=== PATIENT | female | born 1960 | race African-American/Black ===

== ENCOUNTER 2018-08-31 15:02 | Inpatient (IN) | payer MEDICAID ==
[~2018-08-31] VITALS: Ht 144.8 cm; Wt 65.3 kg
--- NOTE | 2018-08-31 15:07 | NUR ---
PT SENT TO LOBBY TO WAIT FOR AVAILABLE BED. NO DISTRESS AND ALERT AND ORIENTED
--- NOTE | 2018-08-31 15:53 | NUR ---
PT C/O OF EPIGASTRIC PAIN FOR ONE WEEK. PT STS THAT SHE HAS BEEN HAVING NAUSEA FOR ONE YEAR AND THAT SHE FEELS THAT SHE HAS BEEN GAINING A LOT OF WEIGHT. PT STS THAT WHEN SHE EATS AND DRINKS THAT SHE GETS HEARTBURN. PT IS ALSO IS HAVING "RIGHT SIDED HOT FLASHES IN HER ARM". PT IS HAVING FREQUENT URINATION FOR A FEW MONTHS OFF AND ON AND NOW CONSTANT FOR TWO WEEKS. UPOAN PALPATION OF ULQ/LLQ PT STS SHE HAS TENDERNESS. VSS. RESP E/U. WILL CONTINUE TO MONITOR.
--- NOTE | 2018-08-31 16:31 | NUR ---
MEDICATED ORDERED. ULTRASOUND AT BEDSIDE.
[2018-08-31 16:35] LABS: microscopic required? YES; urine erythrocyte NEGATIVE (NEGATIVE)
[2018-08-31 16:41] LABS: BASOPHIL % 0.5 % (0-2); PLATELET COUNT 262 x10^3mcL (130-400); RED CELL DISTRIBUTION WIDTH 12.9 % (11.5-14.5)
[2018-08-31 16:50] LABS: AMPHETAMINE QUAL UR NONE DETECTED (See below)
[2018-08-31 16:56] LABS: CALCIUM 8.9 mg/dL (8.5-10.1); CARBON DIOXIDE 32.3 mmol/L (21-32); CHLORIDE SERUM 109 mmol/L (98-107); CREATININE SERUM 0.8 mg/dL (0.6-1.0); GFR1 > 60 mL/min; GLUCOSE SERUM 89 mg/dL (74-106); POTASSIUM SERUM 3.8 mmol/L (3.5-5.1); SODIUM SERUM 144 mmol/L (136-145)
--- NOTE | 2018-08-31 17:01 | NUR ---
XRAY AT BEDSIDE.
[2018-08-31 17:09] LABS: ALBUMIN 3.5 g/dL (3.4-5.0); ALKALINE PHOSPHATASE 74 U/L (46-116); ALT/SGPT 18 U/L (14-59); AMYLASE 61 U/L (25-115); AST/SGOT 14 U/L (15-37); CHOLESTEROL 145 mg/dL (<200); HDL CHOLESTEROL 49 mg/dL (40-60); LIPASE 95 IU/L (73-393); T4(THYROXINE) 6.9 ug/dL (4.7-13.3); TOTAL PROTEIN, SERUM 7.2 g/dL (6.4-8.2)
--- NOTE | 2018-08-31 17:47 | NUR ---
PT IN POSITION OF COMFORT. NO DISTRESS NOTED. PT STS THAT SHE HAS NO PAIN IN ABDOMEN. VSS. WILL CONTINUE TO MONITOR.
--- NOTE | 2018-08-31 19:18 | NUR ---
REPORT RECEIVED FROM FRANCISCO LOGAN
--- NOTE | 2018-08-31 20:20 | NUR ---
PT STATES SHE IS HUNGRY, BUT WAS TOLD THAT SHE NEEDS TO REMAIN NPO PER MD ORDERS. PT IS AWARE WE ARE WAITING FOR A BED. PT HAD E/U CHEST RISE. ALL MONITORS IN PLACE. NO DISTRESS NOTED AT THIS TIME.
[2018-08-31 20:56] LABS: CHOLESTEROL/HDL RATIO 3.2; MAGNESIUM 2.1 mg/dL (1.8-2.4); PHOSPHOROUS 3.6 mg/dL (2.5-4.9)
--- NOTE | 2018-08-31 21:25 | NUR ---
RECEIVED PT FROM ED VIA [facility], CAME IN DUE TO EPIASTRIC PAIN AND LOWER MID CHEST PAIN. AAOX4. DENIES HEADACHE/DIZZINESS. NO SOB NOTED. STATED THAT SHE HAS 10/10 LOWER MID CHEST AND EPIGASTRIC PAIN DESCRIBED ACHING. C/O BLOATING, STATED THAT SHE HAS BEEN PASSING GAS, LAST BM YESTERDAY. ABDOMEN IS SOFT AND DISTENDED. BOWEL SOUNDS ACTIVE. IV SITE ON THE LAC IS PATENT AND INTACT. SIDE RAILS UPX2. CALL LIGHT ON REACH. ENDORSED TO PRIMARY NURSE SUKHDEV FOR CONTINUITY OF CARE
[2018-08-31 21:32] VITALS: BP 112/91
[2018-08-31 21:38] VITALS: Ht 144.8 cm; Wt 65.3 kg
--- NOTE | 2018-09-01 05:10 | NUR ---
PT AWAKE AND C/O OF LEFT SIDE CHEST PAIN, NORCO 1 TAB VIA ORAL ADMINISTERED, ON TELE#12 NSR, IVF INFUSING WELL, BREATHING EVEN AND UNLABORED ON ROOM AIR WITH NO RESP DISTRESS NOTED, GAVE NORCO X 1 LAST NIGHT WITH GOOD RELIEF, NO DISTRESS NOTED, WILL KEEP TO MONITOR.
[2018-09-01 05:23] VITALS: BP 114/69
[2018-09-01 06:21] LABS: BASOPHIL % 0.8 % (0-2); PLATELET COUNT 216 x10^3mcL (130-400); RED CELL DISTRIBUTION WIDTH 13.1 % (11.5-14.5)
[2018-09-01 06:24] LABS: CALCIUM 8.5 mg/dL (8.5-10.1); CARBON DIOXIDE 26.8 mmol/L (21-32); CHLORIDE SERUM 111 mmol/L (98-107); CREATININE SERUM 0.7 mg/dL (0.6-1.0); GFR1 > 60 mL/min; GLUCOSE SERUM 87 mg/dL (74-106); PHOSPHOROUS 3.4 mg/dL (2.5-4.9); POTASSIUM SERUM 4.5 mmol/L (3.5-5.1); SODIUM SERUM 144 mmol/L (136-145)
--- NOTE | 2018-09-01 07:10 | NUR ---
RECEIVED PATIENT AWAKE/ALERT IN BED, AT BEDSIDE SPOKE AND DISCUSS POC WITH PATIENT, DENIES PAIN AT THIS TIME, TELE #12 NOTED, IV TO LAC INTACT AND INFUSING WELL. NEEDS MET. CALL LIGHT IN REACH.
--- NOTE | 2018-09-01 07:21 | NUR ---
BEDSIDE HANDOFF REPORT DONE WITH JOSE-RN, ALL QUESTIONS ANSWERED AND QUESTIONS ADDRESSED.
--- NOTE | 2018-09-01 08:47 | NUR ---
PATIENT RESTING IN BED NO C/O PAIN, C/O NAUSEA. MEDICATED WITH ZOFRAN 4MG IVP AND TOOK ALL PO MEDS. PATIENT TOLERATED WELL, ATE 75% BREAKFAST. NEEDS MET. CALL LIGHT IN REACH.
[2018-09-01 08:49] VITALS: BP 105/64
--- NOTE | 2018-09-01 10:30 | NUR ---
PATIENT SAT UP IN BED NO COMPLAIN, DTR NICK AT BEDSIDE. MOM 30ML PO ADMINISTERED ORDER, NEEDS MET. CONT TO MONITOR.
[2018-09-01] MEDS ORDERED: PROTONIX40 MG PO (11:42)
[2018-09-01 12:16] VITALS: BP 107/52
--- NOTE | 2018-09-01 12:17 | NUR ---
PATIENT GOT UP TO BATHROOM AND BACK TO BED, REPORT NO BM. VOIDED. VSS. NO C/O PAIN. CONT TO MONITOR.
[2018-09-01 12:21] VITALS: BP 107/52
--- NOTE | 2018-09-01 13:51 | NUR ---
PATIENT IN BED AWAKE AND ALERT, NO COMPLAIN OF PAIN. DISCHARGE INSTRUCTIONS AND PRESCRIPTION EXPLAINED TO PATIENT. INSTRUCT PATIENT TO REFRAIN FROM SPICY FOOD AND COFFEE AND TAKE MEDICATION PRESCRIBED. INSTRUCT TO F/U WITH PCP IN 1 WEEK. IV TO LAC REMOVED WITH CATHETER INTACT NO ERYTHEMA NOTED. GUAZES APPLIED TO SITE. AT BEDSIDE. INSTRUCT TO CALL WHEN READY TO GO.
--- NOTE | 2018-09-01 14:03 | NUR ---
TELE #12 RETURN TO [facility]. PATIENT WHEEL OUT BY PAT WITH ALL BELONGINGS.
== END 2018-09-01 13:57 | disposition home or self-care (01) | DRG 243 ==
LOC: ED 15:02 → DU 19:56
PROVIDERS: Emergency Medicine; ADMIT Internal Medicine
DX: K21.9 Gastro-esophageal reflux disease without esophagitis (principal); F41.9 Anxiety disorder, unspecified; M94.0 Chondrocostal junction syndrome [Tietze]; I10 Essential (primary) hypertension; M06.9 Rheumatoid arthritis, unspecified; Z68.31 Body mass index [BMI] 31.0-31.9, adult
CPT/HCPCS: 83880; 85378; J1885; J2405; J7030; Q0092